=== PATIENT | male | born 1980 | race Caucasian/White ===

== ENCOUNTER 2017-02-26 13:55 | Emergency (ER) | payer BC ==
[~2017-02-26] VITALS: Ht 175.3 cm; Wt 126.1 kg
[~2017-02-26 13:55] MED LIST: AMBIEN10 MG PO; ATIVAN1 MG PO; BACLOFEN10 MG PO; DEPAKOTE ER500 MG PO; DEPAKOTE250 MG PO; FISH OIL 1,0001 EAC7 PO; IBUPROFEN200 M1 PO; LISINOPRIL10 MG PO; LORTAB 5-325 M1 EACH PO; LUVOX CR100 MG PO; NAPROSYN500 MG PO; NOHOMEMEDS; PROVENTIL HFA6.7 GM IH; RISPERDAL3 MG PO
[2017-02-26 15:02] LABS: HEMATOCRIT 46.2 % (38.0-50.0); HEMOGLOBIN 16.1 G/DL (12.5-16.6); MCH 28.9 PG (29.0-34.0); MCHC 34.8 G/DL (30.0-36.0); MCV 82.9 FL (86-99); PLATELET COUNT 167 K/uL (156-360); RBC DIS.WIDTH-CV 12.8 % (11.8-14.6); RBC DIS.WIDTH-SD 38.5 % (39-53); RED BLOOD COUNT 5.57 M/uL (4.00-5.50); WHITE BLOOD COUNT 8.3 K/uL (4.1-10.2)
[2017-02-26 15:11] LABS: APPEARANCE CLEAR ((CLEAR)); BILIRUBIN NEGATIVE; BLOOD NEGATIVE; COLOR YELLOW ((YELLOW)); GLUCOSE (STRIP) NEGATIVE; KETONES NEGATIVE; LEUKOCYTES NEGATIVE; NITRITE NEGATIVE; PROTEIN (STRIP) NEGATIVE; SPECIFIC GRAVITY 1.023 (1.000-1.030); UCUL ADDED? NO; UROBILINOGEN 0.2 MG/DL (0.2-1.0)
[2017-02-26 15:17] LABS: CHLORIDE 103 mEq/L (99-109); POTASSIUM 3.9 mEq/L (3.7-5.4); SODIUM 135 mEq/L (136-147)
[2017-02-26 15:18] LABS: GLUCOSE 92 mg/dL (70-99)
[2017-02-26 15:22] LABS: GFR ESTIMATE (CALCULATED) > 59 mL/min/ (58.99-99999)
[2017-02-26 15:23] LABS: UREA NITROGEN (BUN) 16 mg/dL (9-23)
[2017-02-26 16:45] LABS: ALKALINE PHOSPHATASE 59 IU/L (3-129); ALT (GPT) 31 IU/L (3-49); AST (GOT) 25 IU/L (2-34); LIPASE 34 U/L (1.0-51.0); TOTAL PROTEIN 6.6 G/DL (6.4-8.3)
[2017-02-26 16:51] LABS: ALBUMIN 3.9 G/DL (3.2-4.8); DIRECT BILIRUBIN 0.1 mg/dL (0.0-0.3); TOTAL BILIRUBIN 0.6 MG/DL (0.0-1.0)
[2017-02-26] MEDS ORDERED: MOTRIN800 MG PO (17:22)
[2017-02-26] MEDS ORDERED: FLEXERIL10 MG PO (17:22)
[2017-02-26] MEDS ORDERED: NORCO 5/3251 TABLET PO (17:22)
[2017-02-26 17:49] VITALS: BP 140/94
== END 2017-02-26 17:53 | disposition home or self-care (01) ==
LOC: EME 13:55
DX: R10.31 Right lower quadrant pain (principal); K76.0 Fatty (change of) liver, not elsewhere classified; I10 Essential (primary) hypertension; F32.9 Major depressive disorder, single episode, unspecified; F41.9 Anxiety disorder, unspecified; F31.9 Bipolar disorder, unspecified; F42.9 Obsessive-compulsive disorder, unspecified; Z88.2 Allergy status to sulfonamides; Z88.8 Allergy status to other drugs, medicaments and biological substances
CPT/HCPCS: 74176; 80048; 80076; 81003; 83690; 85027; 99281; 99284; J1885